=== PATIENT | male | born 1960 | race African-American/Black ===

== ENCOUNTER 2023-10-27 09:05 | Emergency (ER) | payer OTHER, SELFPAY ==
--- NOTE | 2023-10-27 09:18 | ED.GENMED ---
History of Present Illness
General
Chief Complaint: Crisis Evaluation
Source: ambulance crew and police
Exam Limitations: altered mental status (Schizophrenia)
Time Seen by Provider: 10/27/23 09:16
Nursing documentation reviewed up to this point in time: agreed with
History of Present Illness
History of Present Illness:
59-year-old male found in street directing traffic and yelling and kicking at cars. 911 was called, police brought patient in via EMS.
Past History
Past History
Patient has exhibited threatening behavior?: Yes
Date of threatening behavior? (updated with each occurrence): 10/27/23
Social History
Tobacco: Smoker (Cigarettes found on patient)
Review of Systems
Review of Systems
Unable to obtain full review of systems at this time due to: other (Schizophrenia)
Phy Exam
Physical Exam
Physical Exam:
Physical Exam
General: Agitated, smells of urine, not cooperative
Neck: supple. no meningeal signs. normal posterior pharynx
Heart: s1/s2 regular rate and rhythm, no murmur. equal radial
pulses.
HEENT: Pupils equal round reactive to light, EOMI
Lungs: no acute respiratory distress. clear bilaterally
Abdomen: normal bowel sounds. not tender. no CVAT
Neuro: alert but not oriented. no focal neurological deficits cranial nerves II through XII intact
Skin: no rash
Psychiatric: Nonsensical speech, kicking and punching at staff, spitting at staff
Extremities: no edema. no calf tenderness. negative homans. good distal pulses
Course
Orders/Labs/Results
Orders:
Orders
10/27/23 09:16
Consult Psychiatry [PSYCHIATRY CONSULT] Urgent
Consulting Provider: Nikole Cabrera
Was physician already notified: Yes
Reason for consult: 59 yo male schizophrenic walking in street
10/27/23 09:17
Lorazepam [Ativan] 2 mg IM NOW STA
10/27/23 09:18
Haloperidol Lactate [Haldol] 5 mg IM NOW STA
10/27/23 09:19
Restraints - Violent As Directed
Restraint Type-: Locked-4 point/4 rails
Apply From (date): 10/27/23
Apply from (time): 09:19
Remove (date): 10/27/23
Remove (time): 13:19
10/27/23 09:21
1:1 Observation - Suicide/ Violent Behavior As Directed
10/27/23 09:22
Electrocardiogram (*1) Stat
Reason for Study: Other
Other Reason for Exam: altered mental status
Electrocardiogram (*1) Urgent
Reason for Study: QTc Monitoring
Crisis Consult Urgent
Reason for Consult: schizophrenia, walking in front of cars
EKG- Treatment ONCE
10/27/23 09:50
Alcohol Urgent
Complete Blood Count/With Diff Urgent
Comprehensive Metabolic Panel Urgent
Salicylate Urgent
Tylenol [Acetaminophen] Urgent
10/27/23 09:54
Haloperidol Lactate [Haldol] 2 mg IM NOW STA
Midazolam HCl [Versed] 5 mg IM NOW STA
10/27/23 10:39
Fentanyl, Urine Urgent
Urinalysis Urgent
Date Specimen was Collected: 10/27/23
Time Specimen was Collected: 10:37
Urine Drug Abuse Screen Urgent
Date Specimen was Collected: 10/27/23
Time Specimen was Collected: 10:37
Urine Microscopic Urgent
Date Specimen was Collected: 10/27/23
Time Specimen was Collected: 10:37
10/27/23 10:49
Add On- LAB Urgent
Tests Added?: Hepatitis C, Hepatitis B
10/27/23 11:14
Add On- LAB Urgent
Tests Added?: urine drug abuse
10/27/23 11:46
Add On- LAB Urgent
Tests Added?: urine drug screen
10/27/23 12:16
Troponin I Urgent
10/27/23 14:33
HIV Combo Urgent
Hepatitis A IgM Antibody Urgent
Hepatitis B Surface Antibody Urgent
Hepatitis B Surface Antigen Urgent
Hepatitis C Antibody Urgent
Abnormal Lab Results
10/27/23 10/27/23
09:50 10:39
RBC 4.13 L 10^6/uL
(4.70-6.10)
MCV 96.4 H fL
(80.0-94.0)
MCH 33.2 H pg
(27.0-31.0)
Absolute Lymphs (auto) 1.0 L 10^3/uL
(1.2-3.4)
Absolute Monos (auto) 0.7 H 10^3/uL
(0.1-0.6)
Lymphocytes % 17.8 L %
(20.5-51.1)
Monocytes % 11.7 H %
(1.7-9.3)
Sodium 133 L mmol/L
(135-145)
Potassium 3.3 L mmol/L
(3.5-5.1)
Creatinine 0.5 L mg/dL
(0.7-1.3)
Glucose 107 H mg/dl
(70-99)
Urine Ketones Trace A
(Negative)
Urine Bilirubin 1+ A
(Negative)
Ur Leukocyte Esterase Trace A
(Negative)
Urine Bacteria Few A
(Negative)
Salicylates < 1.0 L mg/dl
(2.0-20.0)
Acetaminophen < 10 L ug/ml
(10-30)
Urine Cocaine Screen Positive H
(Negative)
10/27/23 09:50
10/27/23 09:50
Vital Signs
Initial and Last Documented VS:
Initial Vital Signs
Temp Pulse Resp BP Pulse Ox
98.5 F 74 16 154/98 98
10/27/23 09:36 10/27/23 09:36 10/27/23 09:36 10/27/23 09:36 10/27/23 09:36
Last Documented Vital Signs
Temp Pulse Resp BP Pulse Ox
97.6 F 80 16 121/75 98
10/27/23 10:30 10/27/23 15:15 10/27/23 15:15 10/27/23 15:15 10/27/23 15:15
MDM/Problems Addressed
Differential Diagnosis Includes:
Schizophrenia, intoxication
MDM/Problems Addressed:
Unknown age male with schizophrenia psychosis. No organic cause found. Patient punching and spitting at staff. Unsafe discharge. 302. Discussed with Dr. Cabrera, who will see patient in ED.
Plan to transfer patient to psychiatric facility. EKG with ST abnormality, patient denies chest pain and troponin negative.
Chronic conditions affecting care: Psychiatric illness
Acute Exacerbation and/or Progression of Chronic Illness: Psychiatric illness
*Pulse Oximetry
Patient hypoxic: no
*EKG
Interpreted by ED Provider?: Yes
EKG Intrepretation Date: 10/27/23
EKG Intrepretation Time: 11:13
Interpretation: abnormal
Comparison EKG: no comparison EKG present
Heart Rate: 93
Rate: normal
Rhythm: sinus
[place]: normal axis
Interval: normal interval
QRS Pattern: normal QRS
Ischemia: non-specific ST changes
*Retail Merchandiser Technician Interpretation
Rate: Retail Merchandiser Technician- N/A
*Critical Care Note
Total Time (30-74mins, 75-104mins- exclusive of procedures): 30
comment:
Critical care statement: A total of 30 minutes of critical care time was provided for this patient. This includes management of unstable vital signs, evaluation of the patient at bedside, reviewing the patient's pertinent medical records, discussion
with consultants, review of old EKGs and review of pertinent medical records. This time with separate from time utilized to perform the aforementioned documented procedures
ED Attending Note
-
Portions of this chart may have been created with voice recognition software.� Occasional wrong word or��sound alike� substitutions may have occurred due to the inherent limitations of voice recognition software.
Discharge Plan
Departure
Patient Disposition: Psych Facility
Date of Disposition: 10/27/23
Time of Disposition: 10:33
Patient Status:: 302
Condition: Good
Discharge Problem:
Schizophrenia
Interventions
Interventions:
*Risk Screen - Suicide Last Done: 10/27/23 09:36
*General Assessment Last Done: 10/27/23 09:36
*Neglect/Abuse Screening Last Done: 10/27/23 09:36
ED- Fall Risk Assessment Last Done: 10/27/23 09:36
*ED COVID-19 Vaccine History Last Done: 10/27/23 09:36
ED-Psychological Assessment Last Done: 10/27/23 09:36
Discharge Date and Time
Print Language: THAI
--- NOTE | 2023-10-27 09:19 | EDRN ---
the pt was attempting to kick, hit, punch, and spit on police officers, EMS staff, and ED staff, Dr. Gee at the pts bedside, police officers at the bedside, EMS at the pts bedside,and ED staff at the pts bedside that attempted to calmly
speak to the pt and attempted to get the pt to cooperate with staff, the pt is having word salad, not making sense, the pt refused to allow provider to assess the pt, the pt spit at this RN and the provider, the pt was placed in four point locked
violent restraints with the assistance of this RN, charge nurse Katherine Gonzalez RN, Mariela RN, multiple police officers, multiple EMS providers, and multiple security officers
[2023-10-27] MEDS: HALDOL 5 MG IM (09:24)
[2023-10-27] MEDS: ATIVAN 2 MG IM (09:24)
--- NOTE | 2023-10-27 09:24 | EDRN ---
Haldol and Ativan IM were administered to the pt per Dr. Gee for aggressive/violent behavior, pt attempting to kick, hit, spit on staff while in restraints still
--- NOTE | 2023-10-27 09:25 | EDRN ---
the pt keeps attempting to spit on staff, a spit mast was placed on the pt along with a face shield due to the spit coming through the spit mask, no s/s of respiratory distress, the pt is currently on RA Sp02 98%, will continue to monitor the pt
closely
[2023-10-27 09:36] VITALS: BP 154/98; BMI 19.0
--- NOTE | 2023-10-27 09:56 | EDRN ---
this RN attempted to draw lab work from the pts left had with the assistance of Matthew STARKEY, this RN stuck the pt for labs and the pt attempted to spit in this RN's face and Matthew STARKEY's face, the pt was unsuccessful due to spit past and face shield
that was placed by provider Dr. Gee, the pt also yelled, 'Fuck you i'll fuck you up', and the magaly Castro, labs were obtained successfully and sent to the lab, the pt is resting in stretcher in the lowest position, side rails up x2, HOB
elevated, restraints still in place, VS WNL, will continue to monitor the pt closely
[2023-10-27 09:58] VITALS: BP 115/61
[2023-10-27] MEDS: HALDOL 2 MG IM (10:03)
[2023-10-27] MEDS: VERSED 5 MG IM (10:03)
[2023-10-27 10:05] LABS: % Basophils 0.3 % (0-2); % Eosinophils 0.2 % (0-6); % Immature Granulocytes 0.2 % (0-0.5); % Lymphocytes 17.8 % (20.5-51.1); % Monocytes 11.7 % (1.7-9.3); % Neutrophils 69.8 % (42.2-75.2); Absolute Monocytes 0.7 10^3/uL (0.1-0.6); Hematocrit 39.8 % (39.0-52.0); Hemoglobin 13.7 g/dL (13.0-18.0); Mean Corp Hgb Conc. 34.4 g/dL (33.0-37.0); Mean Corpuscular Hgb 33.2 pg (27.0-31.0); Mean Corpuscular Volume 96.4 fL (80.0-94.0); Mean Platelet Volume 9.5 fL (7.4-10.4); Nucleated Red Blood Cells % 0 % (-); Platelet Count 184 10^3/uL (130-400); Red Blood Cell Count 4.13 10^6/uL (4.70-6.10); Red Cell Dist. Width 11.9 % (11.5-14.5); White Blood Cell Count 5.7 10^3/uL (4.8-10.8)
[2023-10-27 10:27] LABS: ALT (SGPT) 16 U/L (0-50); AST (SGOT) 36 U/L (17-59); Acetaminophen < 10 ug/ml (10-30); Albumin 3.9 g/dl (3.5-5.0); Alkaline Phosphatase 102 U/L (38-126); Blood Urea Nitrogen 14 mg/dl (9-20); Calcium 9.2 mg/dl (8.4-10.2); Carbon Dioxide 23 mmol/L (22-30); Chloride 105 mmol/L (98-107); Estimated Creatinine Clearance 105 ml/min; Glucose 107 mg/dl (70-99); Potassium 3.3 mmol/L (3.5-5.1); Salicylate < 1.0 mg/dl (2.0-20.0); Sodium 133 mmol/L (135-145); Total Bilirubin 0.7 mg/dl (0.2-1.3); Total Protein 6.5 g/dl (6.3-8.2); eGFR > 60.00
[2023-10-27 10:30] VITALS: BP 119/71
--- NOTE | 2023-10-27 10:30 | EDRN ---
two restraints removed, left wrist and right ankle still in place per Dr. Gee, the pt is sleeping and snoring, no s/s of distress, will reassess in another half hour and assess whether or not pt still needs restraints in place
[2023-10-27 10:32] LABS: Alcohol None Detected
--- NOTE | 2023-10-27 10:44 | CON.MD ---
Consultation - Medical
-
This unidentified black male was brought in to by the police on a 302 petition. Pt was found on the street actively hallucinating and trying to direct traffic. He could not give any identifying information or explain what he was doing, where he
was from, etc.
When I entered the ER room to examine him he was asleep and neither I nor the 1:1 attendant could awaken him.
His vital signs are stable; Labs appear within normal range.
He was given Haldol earlier which probably accounts for his current sleepiness.
I will uphold the 302 commitment and hopefully be able to interview him later.
--- NOTE | 2023-10-27 10:45 | EDRN ---
pt Sp02 with spit mask and face shield 98%, no s/s of respiratory distress, pt being taken to crisis room C2
[2023-10-27 10:51] LABS: Urine Albumin Trace (Neg - Trace); Urine Bilirubin 1+ (Negative); Urine Character Slightly Cloudy (Clear); Urine Color Yellow; Urine Glucose Negative (Negative); Urine Ketone Trace (Negative); Urine Leukocyte Trace (Negative); Urine Nitrite Negative (Negative); Urine Occult Blood Negative (Negative); Urine Specific Gravity 1.025 (<1.030); Urine Urobilinogen 1+ (Neg - 1+)
[2023-10-27 11:37] LABS: Urine Red Blood Cell None Seen /HPF (0-2)
[2023-10-27 11:41] LABS: Urine Bacteria Few (Negative)
[2023-10-27 12:50] LABS: Troponin I < 0.012 ng/ml
[2023-10-27 13:05] LABS: Amphetamines Negative (Negative); Barbiturates Negative (Negative); Benzodiazepines Negative (Negative); Buprenorphine Negative (Negative); Cocaine Positive (Negative); Marijuana Negative (Negative); Methadone Negative (Negative); Methamphetamines Negative (Negative); Opiates Negative (Negative); Phencyclidine Negative (Negative); Tricyclic Antidepressants Negative (Negative)
[2023-10-27 13:37] LABS: Fentanyl, Urine Negative (Negative)
[2023-10-27 15:15] VITALS: BP 121/75
[2023-10-27] MEDS: ATIVAN 1 MG PO (18:49)
[2023-10-27 18:51] VITALS: BP 163/97
--- NOTE | 2023-10-27 23:00 | EDRN ---
Report received, patient sleeping with security at bedside
--- NOTE | 2023-10-28 03:00 | EDRN ---
Patient remains asleep at this time, security is at bedside, safe environment maintained
[2023-10-28 08:53] VITALS: BP 116/76
[2023-10-28] MEDS: ATIVAN 1 MG PO (10:56)
[2023-10-28] MEDS: HALDOL 5 MG PO ×2 (11:27→20:20)
--- NOTE | 2023-10-28 11:41 | ED.CRISIS ---
ED Crisis Note
ED Crisis Note
Subjective:
Pt with intermittent outbursts and not offering any additional info
Objective:
Pt seen in room, sitting on his bed.
Assessment/Plan:
Pt unable to be assessed fully by psychiatry yesterday. 302 upheld. Awaiting transition to in-patient psychiatric facility.
Pt given haldol/ativan due to increased agitation
--- NOTE | 2023-10-28 13:30 | W.PN.UPDATE ---
Update Note
Progress Note Update
Pt seen, sitting on stretcher, unkempt/disheveled, sheets and food wrappers thrown around, disrobing at times. Pt yelling/screaming at top volume in response to questions, gives brief responses, then becomes incoherent. Thought disorganized with
paranoid content- 'Nancy lied on me...'. Pt appears to be RIS, uncooperative, demanded to be left alone, stated he wants to go home. 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
medications, has been decompensating lately- CM saw pt last about one week ago. Pt resides at a boarding home. Pt has reported long hx of Schizophrenia, multiple inpatient admissions, was at [facility] Feb to May 2023, reportedly on Haldol Dec
injection- last over a month ago, Depakote, Trazodone, Cogentin. QTc 467 on admission.
Imp: Schizoaffective d/o, acute exacerbation, due to med non-adherence. Pt on 302
Rec: resume medications, although pt's willingness to comply is questionable.
303 hearing tomorrow, will recommend inpatient tx, with plan to place pt in psych facility in [place]
[2023-10-28] MEDS: DEPAKOTE (12 HR RELEASE) 250 MG PO (20:20)
[2023-10-28] MEDS: COGENTIN 1 MG PO (20:20)
[2023-10-29 06:57] LABS: Hepatitis B Surface Antigen Negative (Negative)
[2023-10-29 07:00] LABS: Hepatitis A IgM Antibody Negative (Negative)
[2023-10-29 07:14] LABS: Hepatitis B Surface Antibody Negative; Hepatitis C Antibody Negative (Negative)
[2023-10-29] MEDS: DEPAKOTE (12 HR RELEASE) 250 MG PO ×2 (08:25→20:27)
[2023-10-29] MEDS: HALDOL 5 MG PO ×2 (08:26→20:27)
[2023-10-29] MEDS: COGENTIN 1 MG PO ×2 (08:26→20:27)
--- NOTE | 2023-10-29 08:50 | ED.CRISIS ---
ED Crisis Note
ED Crisis Note
Subjective:
63-year-old male here on a 302 for psychosis/paranoia. No acute events overnight.
Objective:
Awake and alert not in distress. He appears disheveled and disorganized.
Assessment/Plan:
Patient here on a 302 for psychosis and paranoia. No events overnight. Psychiatry following along. Scheduled for a 303 hearing today at around 11 AM. He is from [place], crisis planning to try to work for placement [facility] facilities [facility].
--- NOTE | 2023-10-29 13:48 | W.PN.UPDATE ---
Update Note
Progress Note Update
Pt continues to be disorganized, isolative, unkempt. Pt pacing around room, RIS, with odd hand gestures. No aggressive behavior at this point. He is taking po meds which were restarted last pm. 303 MH hearing held- pt committed for up to 14 days
of inpatient tx. Pt is connected with [facility] in [place], has a community case manager, resides in a .
Imp: Schizophrenia, acute exacerbation. Now on 303 for up to 14 days inpatient
Rec: continue current meds; need to confirm outpatient doses
Refer to inpatient psych facility, preferably in [place]
[2023-10-29 15:24] LABS: HIV Combo Negative (Negative)
[2023-10-29] MEDS: ATIVAN 1 MG PO (18:18)
[2023-10-29 19:47] VITALS: BP 171/93
== END 2023-10-29 20:31 ==
LOC: EMR 09:05
PROVIDERS: CONSULT PHYSICIAN Psychiatry & Neurology Psychiatry; EMERGENCY PHYSICIAN Emergency Medicine
DX: F20.9 Schizophrenia, unspecified (principal); R45.1 Restlessness and agitation; R45.6 Violent behavior; Z91.148 Patient's other noncompliance with medication regimen for other reason; F17.210 Nicotine dependence, cigarettes, uncomplicated
CPT/HCPCS: 99291; 96372 ×4; 80053; 80143; 80179; 80306; 80307; 81003; 81015; 82077; 84484; 85025; 86706; 86709; 86803; 87340; 87389; 93005